=== PATIENT | female | born 1975 | race Caucasian/White ===

== ENCOUNTER 2017-01-22 07:59 | Day surgery (SDC) | payer OTHER ==
[~2017-01-22] VITALS: Ht 170.2 cm; Wt 117.0 kg
[~2017-01-22 07:59] MED LIST: ATORVASTATIN CA40 MG PO; INSULIN PUMP SCCONT; LISINOPRIL5 MG PO; NORCO 5/3251 TABLET PO; VITAMIN D5000 UNI1 PO
[2017-01-22 08:40] LABS: POINT-OF-CARE METER ID UU13113694
[2017-01-22 09:07] VITALS: BP 158/74
[2017-01-22 11:24] LABS: POINT-OF-CARE METER ID UU13113675
[2017-01-22 11:55] VITALS: BP 123/68
[2017-01-22 12:47] VITALS: BP 120/69
== END 2017-01-22 12:55 | disposition home or self-care (01) ==
LOC: SDC 07:59 → 2SOUTH 09:16 → EDSTATUS 09:17 → SDC 09:19
PROVIDERS: Ophthalmology
DX: E11.3522 Type 2 diabetes mellitus with proliferative diabetic retinopathy with traction retinal detachment involving the macula, left eye (principal); H43.12 Vitreous hemorrhage, left eye; E11.42 Type 2 diabetes mellitus with diabetic polyneuropathy; Z79.4 Long term (current) use of insulin; E66.01 Morbid (severe) obesity due to excess calories; Z68.41 Body mass index [BMI] 40.0-44.9, adult; Z96.41 Presence of insulin pump (external) (internal); Z88.0 Allergy status to penicillin; I10 Essential (primary) hypertension
CPT/HCPCS: 82948; J0690; J1100; J2250; J2405; J2795; J3010; J3300